=== PATIENT | female | born 1990 | race Asian ===

== ENCOUNTER 2017-01-31 12:42 | Emergency (ER) | payer OTHER ==
[2017-01-31 15:01] VITALS: BP 110/74
== END 2017-01-31 15:02 | disposition home or self-care (01) ==
LOC: ED 12:42
DX: S69.92XA Unspecified injury of left wrist, hand and finger(s), initial encounter (principal); X58.XXXA Exposure to other specified factors, initial encounter; Y93.89 Activity, other specified; Y99.8 Other external cause status; Y92.89 Other specified places as the place of occurrence of the external cause
CPT/HCPCS: 36415